=== PATIENT | female | born 1940 | race Caucasian/White ===

== ENCOUNTER → 2016-05-28 | Outpatient (CLI) | payer MEDICARE ==
[~2016-05-28] MED LIST: ADVAIR INH; AMBIEN PO; ASPIRIN PO; B-12 PO; BONIVA150 MG PO; CALAN SR PO; CALTRATE PLUS T1 TAB PO; DIOVAN PO; DUONEB 2.5-0.5 M3 ML NEB; FISH OIL 1,0001 CAP PO; FOLIC ACID PO; GLUCOSAMINE PO; LEVAQUIN PO; MAXZIDE 75/50 T1 TAB PO; MEVACOR PO; NEURONTIN PO; NEXIUM PO; NORVASC PO; TRIAMTERENE/HCT1 TA3; VYTORIN 10/20 T1 TAB PO; ZANTAC PO; [UNRECOGNIZED DRUG - REMARK]
--- NOTE | ~2016-05-28 | CR71 ---
[facility] A Service of [facility] & [facility] RADIOLOGY TEXT RESULTS PATIENT: MELCHOR ESTRADA LOCATION: CIVR : 38 UNIT #: [id number] AGE: [address]: Wendy Echols MD SEX: F ORDER DR: [id number] [facility] [address] [place], [place] [address] [id number] O MR#: [id number] Acc #: [id number] NAME: MELCHOR ESTRADA : 1940 SEX: F STUDY DATE/TIME: 05/28/2016 10:57 UNIT: [facility] ROOM: STUDY DESCRIPTION: CR Chest Single View Attending Physician: Wendy Echols M.D. Ordering Physician: Steve Martinez M.D. Primary Care Physician: Ishmael Duenas M.D. MEDICAL IMAGING REPORT This report is preliminary unless electronic signature is present EXAM AP chest radiograph HISTORY Status post left thoracentesis. An AP chest is obtained. Redemonstrated is marked elevation of the left hemidiaphragm. No pneumothorax is seen. Post thoracentesis. There is cardiomegaly. CONCLUSION No pneumothorax post left thoracentesis Dictated by... Steve Martinez M.D. THIS IS AN ELECTRONICALLY VERIFIED REPORT Steve Martinez M.D. at 05/28/2016 5:03 PM AUDI/neel TD: 05/28/2016 12:42 JOB #: [id number] MEDICAL IMAGING REPORT Page 1 of 1 COPY
--- NOTE | ~2016-05-28 | XA203 ---
[facility] A Service of [facility] RADIOLOGY TEXT RESULTS PATIENT: MELCHOR ESTRADA LOCATION: [facility] ERR : 38 UNIT #: [id number] AGE: [address]: Wendy Echols MD SEX: F ORDER DR: [id number] [facility] [address] [place], [place] [address] [id number] O MR#: [id number] Acc #: [id number] NAME: MELCHOR ESTRADA : 1940 SEX: F STUDY DATE/TIME: 05/28/2016 10:27 UNIT: [facility] ROOM: STUDY DESCRIPTION: XA Thoracentesis Attending Physician: Wendy Echols M.D. Ordering Physician: Wendy Echols M.D. Primary Care Physician: Ishmael Duenas M.D. MEDICAL IMAGING REPORT This report is preliminary unless electronic signature is present EXAM Ultrasound-guided thoracentesis. HISTORY Left pleural effusion. PROCEDURE Procedure, attendant risks, and options were discussed with Ms. Casey. She understands and wishes to proceed. Ultrasound examination was performed showing a loculated collection posteriorly with multiple internal echoes. The area was prepped with chlorhexidine and sterile drape applied. Skin was anesthetized and a 5-Indonesian catheter inserted. No fluid could be aspirated. Needle was removed, hemostasis achieved, and the procedure very well tolerated. Followup chest radiograph is negative and patient discharged. CONCLUSION Successful aspiration of the fluid density collection posteriorly. However, this appears to be loculated and there is no fluid present. It appears completely organized. Dictated by... Steve Martinez M.D. THIS IS AN ELECTRONICALLY VERIFIED REPORT Steve Martinez M.D. at 05/28/2016 5:03 PM AUDI/floyd TD: 05/28/2016 15:12 JOB #: [id number] [facility] A Service of [facility] RADIOLOGY TEXT RESULTS PATIENT: MELCHOR ESTRADA LOCATION: CIVR : 38 UNIT #: [id number] AGE: [address]: Wendy Echols MD SEX: F ORDER DR: MEDICAL IMAGING REPORT Page 1 of 1 COPY
[2016-05-28 10:04] LABS: HEMATOCRIT 39.4 % (35.0-45.0); HEMOGLOBIN 12.8 gm/dL (12.0-16.0); MEAN CELL VOLUME 86.4 FL (83-96); MEAN CORPUSCULAR HEMOGLOBIN 28.1 PG (28-34); MEAN CORPUSCULAR HGB CONC 32.6 g/dL (30-36); MEAN PLATELET VOLUME 8.1 FL (6.5-11.5); RED BLOOD COUNT 4.56 X10e (3.90-5.30); RED CELL DISTRIBUTION WIDTH 13.7 % (11.0-15.5); WHITE BLOOD COUNT 6.5 X10e3 (4.0-10.5)
[2016-05-28 10:23] LABS: PROTHROMBIN TIME (PATIENT) 10.5 SECONDS (9.6-11.5)
== END | disposition home or self-care (01) ==
LOC: CIVR 09:10
PROVIDERS: Internal Medicine Hematology
PROC: 0W9B30Z Drainage of Left Pleural Cavity with Drainage Device, Percutaneous Approach (ICD-10-PCS; principal; 2016-05-28)
DX: J90 Pleural effusion, not elsewhere classified (principal); C34.90 Malignant neoplasm of unspecified part of unspecified bronchus or lung
CPT/HCPCS: 36415; 71010; 85027; 85610; 85730

== ENCOUNTER → 2016-08-22 | Outpatient (CLI) | payer MEDICARE ==
--- NOTE | ~2016-08-22 | PFT ---
[id number] [facility] [place], [place] [address] [id number] O MR#: [id number] NAME: MELCHOR ESTRADA ROOM: SEX: F STUDY DATE/TIME: 08/22/2016 : 1940 AGE: 75 STUDY DESCRIPTION: Attending Physician: Ishmael Duenas M.D. Referring Physician: Ishmael Duenas M.D. Primary Care Physician: Ishmael Duenas M.D. 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 No definite obstructive defect noted; however, there is a 13% change after bronchodilators yielding an FEV1 of 870 mL, 47% of predicted. Flow volume loop is consistent with a restrictive defect. Lung volumes confirm a restrictive defect with a total lung capacity of 70%. Diffusion capacity is severely reduced at 44% suggesting an intrinsic restrictive defect such as pulmonary fibrosis. Dictated by... Fab Marcus/santino TD: 08/28/2016 07:15 JOB #: [id number] CC: Ishmael Duenas M.D. PULMONARY DIAGNOSTIC REPORT Page 1 of 1
== END | disposition home or self-care (01) ==
LOC: CRC 08-19 08:00
DX: R06.02 Shortness of breath (principal)
CPT/HCPCS: 94060; 94726; 94729

== ENCOUNTER → 2016-08-29 | Outpatient (CLI) | payer MEDICARE ==
--- NOTE | ~2016-08-29 | US10 ---
[id number] [facility] [address] [place], [place] [address] [id number] O MR#: [id number] Acc #: [id number] NAME: MELCHOR ESTRADA : 1940 SEX: F STUDY DATE/TIME: 08/29/2016 10:26 UNIT: [facility] ROOM: STUDY DESCRIPTION: US Aorta Complete Attending Physician: Ishmael Duenas M.D. Referring Physician: Ihsmael Duenas M.D. Ordering Physician: Ishmael Duenas M.D. Primary Care Physician: Ishmael Duenas M.D. MEDICAL IMAGING REPORT This report is preliminary unless electronic signature is present EXAM Abdominal aortic duplex 08/29/2016 CLINICAL HISTORY Screening FINDINGS The proximal aorta has a velocity of 101 cm/sec, and measures 1.9 x 1.8 cm. The mid aorta has a velocity of 88 cm/sec, and measures 1.6 x 1.4 cm. The distal aorta has a velocity of 108 cm/sec, and measures 1.5 x 1.7 cm. The right common iliac artery measures 1.1 x 1.4 cm, with a velocity of 90 cm/sec. The left common iliac artery measures 1.0 x 1.4 cm, with a velocity of 127 cm/sec. IMPRESSION There is no evidence of an infrarenal triple A on today's exam. Dictated by... Wade Rico M.D. THIS IS AN ELECTRONICALLY VERIFIED REPORT Wade Rico M.D. at 08/30/2016 8:42 AM Neptali TD: 08/29/2016 18:41 JOB #: [id number] MEDICAL IMAGING REPORT Page 1 of 1 COPY
== END | disposition home or self-care (01) ==
LOC: CGUS 10:03
DX: Z13.6 Encounter for screening for cardiovascular disorders (principal)
CPT/HCPCS: 76770